=== PATIENT | female | born 1990 | race Caucasian/White ===

== ENCOUNTER → 2017-09-04 | Outpatient (CLI) | payer OTHER ==
[2017-09-08 04:12] LABS: CHLAMYDIA TRACHOMATIS, NAA Negative (Negative); NEISSERIA GONORRHOEAE, NAA Negative (Negative)
== END | disposition home or self-care (01) ==
LOC: LAB SHORT 11:19 → LAB 11:19
PROVIDERS: Family Medicine
DX: N76.0 Acute vaginitis (principal)
CPT/HCPCS: 87491; 87591

== ENCOUNTER → 2018-05-10 | Outpatient (CLI) | payer BC ==
[2018-05-12 15:07] LABS: HPV 16 Negative (Negative); HPV 18 Negative (Negative); HPV OTHER HR TYPES Negative (Negative)
== END | disposition home or self-care (01) ==
LOC: LAB SHORT 19:12 → LAB 19:12
PROVIDERS: Nurse Practitioner Women's Health
DX: Z12.4 Encounter for screening for malignant neoplasm of cervix (principal)
CPT/HCPCS: 87624; G0123

== ENCOUNTER → 2018-05-11 | Outpatient (CLI) | payer BC | END | disposition home or self-care (01) | LOC: LAB 12:44 → LAB SHORT 12:44 | DX: N89.8 Other specified noninflammatory disorders of vagina (principal) | CPT/HCPCS: 87070; 87147; 87205 ==

== ENCOUNTER → 2020-01-16 | Outpatient (CLI) | payer OTHER | END | disposition home or self-care (01) | LOC: LAB SHORT 14:05 → LAB SRC 14:05 | DX: O23.42 Unspecified infection of urinary tract in pregnancy, second trimester (principal) | CPT/HCPCS: 87077; 87086; 87186 ==

== ENCOUNTER → 2020-01-30 | Outpatient (CLI) | payer OTHER ==
[2020-01-30 13:07] LABS: Protein, Urine Quantitative 6.1 mg/dL (0.0-11.9)
== END | disposition home or self-care (01) ==
LOC: LAB SHORT 11:28 → LAB SRC 11:28
PROVIDERS: Obstetrics & Gynecology
DX: R03.0 Elevated blood-pressure reading, without diagnosis of hypertension (principal)
CPT/HCPCS: 81050; 84156

== ENCOUNTER 2020-06-18 21:11 | Inpatient (IN) | payer OTHER ==
[~2020-06-18] VITALS: Ht 165.1 cm; Wt 128.6 kg
[2020-06-18] MEDS ORDERED: PRENATAL TABLE1 EAC2 PO (21:33)
[2020-06-18] MEDS ORDERED: LEVSOD100 PO (21:33)
[2020-06-18 21:43] LABS: BASOPHILS ABSOLUTE AUTO 0.03 K/mm3 (0.00-0.23); BASOPHILS PERCENT AUTO 0 % (0-2); EOSINOPHILS ABSOLUTE AUTO 0.15 K/mm3 (0.00-0.68); EOSINOPHILS PERCENT AUTO 1 % (0-6); Hematocrit 35.4 % (33.0-51.0); Hemoglobin 12.1 g/dL (11.5-16.0); IMMATURE GRAN ABSOLUTE AUTO 0.05 K/mm3 (0.00-0.10); IMMATURE GRAN PERCENT AUTO 0 % (0-1); LYMPHOCYTES ABSOLUTE AUTO 2.31 K/mm3 (0.84-5.20); LYMPHOCYTES PERCENT AUTO 20 % (21-46); MONOCYTES ABSOLUTE AUTO 0.85 K/mm3 (0.16-1.47); MONOCYTES PERCENT AUTO 7 % (4-13); Mean Corpuscular HGB 30.6 pg (26.0-34.0); Mean Corpuscular HGB Conc 34.2 g/dL (31.5-36.5); Mean Corpuscular Volume 89 fL (80-100); Mean Platelet Volume 11.1 fL (9.1-12.4); NEUTROPHILS ABSOLUTE AUTO 8.23 K/mm3 (1.96-9.15); NEUTROPHILS PERCENT AUTO 71 % (41-73); Platelet Count 263 K/mm3 (150-400); RDW Coefficient Variation 13.1 % (11.7-14.2); RDW Standard Deviation 42.9 fL (35.1-46.3); Red Blood Cell Count 3.96 M/mm3 (3.80-5.20); White Blood Cell Count 11.62 K/mm3 (4.00-11.30)
--- NOTE | 2020-06-19 23:59 | NUR ---
06/19/20 7898 Carlos Plummer BABY GIRL BORN AT [id number], CORD SENT FOR CORD GASSES AND CORD BLOOD SAMPLE SENT TO THE LAB ALL VIA OB STAFF. FATHER PRESENT.
--- NOTE | 2020-06-20 03:37 | NUR ---
AGREE WITH STUDENT LEONIDES ASSESSMENT AND CARE THIS SHIFT
--- NOTE | 2020-06-20 05:25 | NUR ---
JONATHAN CARE DONE.
--- NOTE | 2020-06-20 06:29 | NUR ---
AGREE WITH STUDENT ASSESSMENT AND CARE THIS SHIFT
[2020-06-20 10:37] LABS: Mean Corpuscular HGB 31.1 pg (26.0-34.0); Mean Corpuscular HGB Conc 34.5 g/dL (31.5-36.5); Mean Corpuscular Volume 90 fL (80-100); Mean Platelet Volume 11.2 fL (9.1-12.4); Platelet Count 199 K/mm3 (150-400); RDW Coefficient Variation 13.1 % (11.7-14.2); Red Blood Cell Count 3.22 M/mm3 (3.80-5.20); White Blood Cell Count 13.86 K/mm3 (4.00-11.30)
--- NOTE | 2020-06-20 12:27 | NUR ---
ASSIST MOM HAS VERY WIDE SPACED UNDER DEVELOPED BREASTS SHE REPORTS THAT SHE REPORTS THAT SHE HAD NO BREAST GROWTH DURING HER PG. DISCUSSED POSSIBILITY OF DECREASED GLANDULAR TISSUE AND WHAT THAT COULD MEAN. MOM TO CONSIDER PUMPING AC 10-15 MINUTES AFTER EACH FEEDING TO HELP MAXIMIZE MILK PRODUCTION. WORKED ON LATCH BABY NURSING WELL TIMES 10 MINUTES ENCOURAGE MOM TO TRY AND KEEP BABY NURSING 20 MINUTES ON EACH BREAST AT EVERY FEEDING.
--- NOTE | 2020-06-20 12:39 | NUR ---
REPORTS DOING WELL, ON THE PHONE WITH FAMILY
[2020-06-21] MEDS ORDERED: Percocet 5-3251 EACH PO (09:23)
[2020-06-21] MEDS ORDERED: IBUP800 PO (09:24)
--- NOTE | 2020-06-21 15:23 | NUR ---
CONSULT PRIOR TO DISCHARGE HOME. BREASTS ARE SMALL, CONICAL, AND WIDELY SPACED. VERY LITTLE CHANGE DURING AND VERY LITTLE COLOSTRUM. INSTRUCT IN SUPPLEMENTING AT THE BREAST WITH SYRINGE AND FEEDING TUBE, INCREASING AMOUNT/FEEDING EACH DAY TO MATCH BABY'S GROWTH, UNTIL HER MILK COMES IN. DISCUSSED THE POSSIBILITY OF LOW TO NO PRODUCTION, BUT ALLOW HER BODY FULL STIMULATION TO PRODUCE FOR 1-2 WEEKS, THEN REEVALUATE HOW TO FEED BABY. HAVE BEEN OFFERING FORMULA VIA BOTTLE. MOM TO PUMP FOR 15-20 MINUTES 8-10X/DAY WHEN SHE GETS HOME, AND FEED BACK ALL EBM TO BABY, PUMPING PC. QUESTIONS ANSWERED, EMOTIONAL SUPPORT GIVEN, SPOUSE IS SUPPORTIVE, BOTH LOVING WITH BABY.
--- NOTE | 2020-07-03 18:49 | NUR ---
LATE ENTRY OR CHECKLIST UPDATED PER EMR
== END 2020-06-21 15:50 | disposition home or self-care (01) | DRG 787 ==
LOC: OBS 21:11 → BC 21:21
PROVIDERS: ADMIT Obstetrics & Gynecology
PROC: 3E033VJ Introduction of Other Hormone into Peripheral Vein, Percutaneous Approach (ICD-10-PCS; 2020-06-19)
PROC: 3E0P7VZ Introduction of Hormone into Female Reproductive, Via Natural or Artificial Opening (ICD-10-PCS; 2020-06-19)
PROC: 10907ZC Drainage of Amniotic Fluid, Therapeutic from Products of Conception, Via Natural or Artificial Opening (ICD-10-PCS; 2020-06-19)
PROC: 10H07YZ Insertion of Other Device into Products of Conception, Via Natural or Artificial Opening (ICD-10-PCS; 2020-06-19)
PROC: 00HU33Z Insertion of Infusion Device into Spinal Canal, Percutaneous Approach (ICD-10-PCS; 2020-06-19)
PROC: 3E033NZ Introduction of Analgesics, Hypnotics, Sedatives into Peripheral Vein, Percutaneous Approach (ICD-10-PCS; 2020-06-19)
PROC: 10D00Z1 Extraction of Products of Conception, Low, Open Approach (ICD-10-PCS; principal; 2020-06-19 23:30)
DX: O24.420 Gestational diabetes mellitus in childbirth, diet controlled (principal); O10.92 Unspecified pre-existing hypertension complicating childbirth; Z3A.39 39 weeks gestation of pregnancy; Z37.0 Single live birth; O99.214 Obesity complicating childbirth; E66.9 Obesity, unspecified; E03.9 Hypothyroidism, unspecified; O76 Abnormality in fetal heart rate and rhythm complicating labor and delivery; O99.824 Streptococcus B carrier state complicating childbirth; Z20.822 Contact with and (suspected) exposure to COVID-19
CPT/HCPCS: 0241U; 36415; 51702; 82947; 85025; 85027; 86850; 86900; 86901; A9270; J1580; J1885; J2001; J2590; J2765; J3010; J3370; J7050; J7120

== ENCOUNTER 2020-07-07 19:03 | Emergency (ER) | payer OTHER ==
[~2020-07-07] VITALS: Ht 165.1 cm; Wt 117.5 kg
[~2020-07-07 19:03] MED LIST: IBUP800 PO; LEVSOD100 PO; PRENATAL TABLE1 EAC2 PO; Percocet 5-3251 EACH PO
[2020-07-07 20:02] LABS: BASOPHILS ABSOLUTE AUTO 0.03 K/mm3 (0.00-0.23); BASOPHILS PERCENT AUTO 0 % (0-2); EOSINOPHILS ABSOLUTE AUTO 0.31 K/mm3 (0.00-0.68); EOSINOPHILS PERCENT AUTO 3 % (0-6); Hematocrit 36.1 % (33.0-51.0); Hemoglobin 11.8 g/dL (11.5-16.0); IMMATURE GRAN ABSOLUTE AUTO 0.04 K/mm3 (0.00-0.10); IMMATURE GRAN PERCENT AUTO 0 % (0-1); LYMPHOCYTES ABSOLUTE AUTO 2.35 K/mm3 (0.84-5.20); LYMPHOCYTES PERCENT AUTO 24 % (21-46); MONOCYTES ABSOLUTE AUTO 0.62 K/mm3 (0.16-1.47); MONOCYTES PERCENT AUTO 6 % (4-13); Mean Corpuscular HGB 29.6 pg (26.0-34.0); Mean Corpuscular HGB Conc 32.7 g/dL (31.5-36.5); Mean Corpuscular Volume 91 fL (80-100); Mean Platelet Volume 11.4 fL (9.1-12.4); NEUTROPHILS ABSOLUTE AUTO 6.37 K/mm3 (1.96-9.15); NEUTROPHILS PERCENT AUTO 66 % (41-73); Platelet Count 276 K/mm3 (150-400); RDW Coefficient Variation 12.1 % (11.7-14.2); RDW Standard Deviation 39.9 fL (35.1-46.3); Red Blood Cell Count 3.99 M/mm3 (3.80-5.20); White Blood Cell Count 9.72 K/mm3 (4.00-11.30)
[2020-07-07 20:15] LABS: Alanine Aminotransfer (ALT/SGP 22 U/L (12-78); Albumin, Blood 3.4 g/dL (3.4-5.0); Albumin/Globulin Ratio 0.9 (0.8-1.8); Alk Phos 124 U/L (50-136); Anion Gap 6 mmol/L (6-16); Aspartate Aminotrans (AST/SGOT 12 U/L (12-37); Bilirubin, Total 0.2 mg/dL (0.1-1.0); Blood Urea Nitrogen 10 mg/dL (8-24); Bun/Creatinine Ratio 13.1 (12.0-20.0); CO2, Blood 23 mmol/L (21-32); Calcium, Blood 8.7 mg/dL (8.5-10.1); Chloride, Blood 111 mmol/L (98-108); Creatinine, Blood 0.76 mg/dL (0.40-1.00); Globulin, Blood 3.8 g/dL (2.2-4.0); Glomerular Filtration Rate >60 (60-); Glucose, Blood 102 mg/dL (70-99); Potassium, Blood 3.5 mmol/L (3.5-5.5); Sodium, Blood 140 mmol/L (136-145); Total Protein, Blood 7.2 g/dL (6.4-8.2)
[2020-07-07] MEDS ORDERED: ONDA4ODT MM (20:28)
== END 2020-07-07 20:35 | disposition home or self-care (01) ==
LOC: ER 19:03
PROVIDERS: Emergency Medicine
DX: K80.20 Calculus of gallbladder without cholecystitis without obstruction (principal); E03.9 Hypothyroidism, unspecified; Z88.0 Allergy status to penicillin; Z88.1 Allergy status to other antibiotic agents; Z79.899 Other long term (current) drug therapy
CPT/HCPCS: 36415; 76705; 80053; 83690; 85025; 96374; 96375; 99284-25; J2405; J3010

== ENCOUNTER → 2023-02-19 | Outpatient (CLI) | payer OTHER ==
[~2023-02-19] MED LIST changes: +ACET325 PO; +EUTHYROX125 MCG PO; +Norco 5-325 Ta1 EACH PO; +ONDA4ODT MM
== END | disposition home or self-care (01) ==
LOC: LAB SHORT 15:09 → LAB 15:09
DX: O34.211 Maternal care for low transverse scar from previous cesarean delivery (principal); O99.213 Obesity complicating pregnancy, third trimester; O99.283 Endocrine, nutritional and metabolic diseases complicating pregnancy, third trimester; O99.343 Other mental disorders complicating pregnancy, third trimester
CPT/HCPCS: 87081; 87150; 87184

== ENCOUNTER 2023-03-09 05:13 | Inpatient (IN) | payer OTHER ==
[~2023-03-09] VITALS: Ht 165.1 cm; Wt 131.8 kg
[2023-03-09] VITALS (23 sets, daily range): BP systolic 86–134; BP diastolic 57–84
[2023-03-09 05:57] LABS: BASOPHILS ABSOLUTE AUTO 0.04 K/mm3 (0.00-0.23); BASOPHILS PERCENT AUTO 0 % (0-2); EOSINOPHILS ABSOLUTE AUTO 0.18 K/mm3 (0.00-0.68); EOSINOPHILS PERCENT AUTO 1 % (0-6); Hematocrit 35.6 % (33.0-51.0); Hemoglobin 12.2 g/dL (11.5-16.0); IMMATURE GRAN ABSOLUTE AUTO 0.06 K/mm3 (0.00-0.10); IMMATURE GRAN PERCENT AUTO 1 % (0-1); LYMPHOCYTES ABSOLUTE AUTO 2.68 K/mm3 (0.84-5.20); LYMPHOCYTES PERCENT AUTO 21 % (21-46); MONOCYTES PERCENT AUTO 7 % (4-13); Mean Corpuscular HGB 30.5 pg (26.0-34.0); Mean Corpuscular HGB Conc 34.3 g/dL (31.5-36.5); Mean Corpuscular Volume 89 fL (80-100); Mean Platelet Volume 10.8 fL (9.1-12.4); NEUTROPHILS ABSOLUTE AUTO 9.23 K/mm3 (1.96-9.15); NEUTROPHILS PERCENT AUTO 70 % (41-73); Platelet Count 232 K/mm3 (150-400); RDW Coefficient Variation 13.3 % (11.7-14.2); RDW Standard Deviation 43.7 fL (35.1-46.3); White Blood Cell Count 13.09 K/mm3 (4.00-11.30)
[2023-03-09] MEDS ORDERED: PRENATAL TABLE1 EAC2 PO (06:26)
--- NOTE | 2023-03-09 08:14 | NUR ---
03/09/23 0814 Tutu Bolden DELIVERY OF LIVE FEMALE AT 0803, 9/9 APGARS WT 3610 GM 7#15 19 /2 IN, SKIN TO SKIN INITIATED IN OR
--- NOTE | 2023-03-09 16:55 | NUR ---
ambulated in the room
[2023-03-10 04:11] VITALS: BP 134/69
[2023-03-10 05:46] LABS: BASOPHILS ABSOLUTE AUTO 0.02 K/mm3 (0.00-0.23); BASOPHILS PERCENT AUTO 0 % (0-2); EOSINOPHILS ABSOLUTE AUTO 0.18 K/mm3 (0.00-0.68); EOSINOPHILS PERCENT AUTO 2 % (0-6); Hematocrit 31.2 % (33.0-51.0); Hemoglobin 10.6 g/dL (11.5-16.0); IMMATURE GRAN ABSOLUTE AUTO 0.06 K/mm3 (0.00-0.10); IMMATURE GRAN PERCENT AUTO 1 % (0-1); LYMPHOCYTES ABSOLUTE AUTO 2.13 K/mm3 (0.84-5.20); LYMPHOCYTES PERCENT AUTO 19 % (21-46); MONOCYTES ABSOLUTE AUTO 0.86 K/mm3 (0.16-1.47); MONOCYTES PERCENT AUTO 8 % (4-13); Mean Corpuscular HGB 30.5 pg (26.0-34.0); Mean Corpuscular Volume 90 fL (80-100); Mean Platelet Volume 11.2 fL (9.1-12.4); NEUTROPHILS ABSOLUTE AUTO 8.11 K/mm3 (1.96-9.15); NEUTROPHILS PERCENT AUTO 71 % (41-73); Platelet Count 188 K/mm3 (150-400); RDW Coefficient Variation 13.7 % (11.7-14.2); RDW Standard Deviation 44.8 fL (35.1-46.3); Red Blood Cell Count 3.48 M/mm3 (3.80-5.20); White Blood Cell Count 11.36 K/mm3 (4.00-11.30)
[2023-03-10 09:07] VITALS: BP 130/80
[2023-03-10 11:46] VITALS: BP 140/88
[2023-03-10 16:26] VITALS: BP 130/79
[2023-03-10 19:25] VITALS: BP 136/84
[2023-03-10 23:14] VITALS: BP 119/67
--- NOTE | 2023-03-11 03:29 | NUR ---
pt sitting in bed with lights on. Pt holding baby. Pt requested pain meds, rated her pain a 7. notified nurse. refilled water pitcher. no further needs at this time.
[2023-03-11 05:50] VITALS: BP 105/56
[2023-03-11 08:29] VITALS: BP 144/100
[2023-03-11] MEDS ORDERED: IBU800 MG PO (09:20)
[2023-03-11] MEDS ORDERED: OXAYDO5 M3 PO (09:20)
[2023-03-11 11:49] VITALS: BP 134/75
[2023-03-11 17:14] VITALS: BP 157/85
[2023-03-11 17:17] VITALS: BP 148/92
--- NOTE | 2023-03-11 18:05 | NUR ---
DC HOME WITH SO AND BABY, AMBULATE OUT, HAS COPY OF DCINSTRUCTINS, DENIES ANY QUESTIONS, ENCOURAGED TO CALL IF HAS ANY, HAS [facility] APPT FOR [facility], HAS [facility] APPT TO REMOVE STERI STRIPS AT 7-10 DAYS.
== END 2023-03-11 18:10 | disposition home or self-care (01) | DRG 788 ==
LOC: BC 05:13
PROVIDERS: ADMIT Obstetrics & Gynecology
PROC: 10D00Z1 Extraction of Products of Conception, Low, Open Approach (ICD-10-PCS; principal; 2023-03-09 07:30)
DX: O34.211 Maternal care for low transverse scar from previous cesarean delivery (principal); O32.1XX0 Maternal care for breech presentation, not applicable or unspecified; O99.214 Obesity complicating childbirth; Z3A.39 39 weeks gestation of pregnancy; Z37.0 Single live birth; Z79.890 Hormone replacement therapy; O99.284 Endocrine, nutritional and metabolic diseases complicating childbirth; E03.9 Hypothyroidism, unspecified; Z88.0 Allergy status to penicillin; Z88.1 Allergy status to other antibiotic agents; O99.62 Diseases of the digestive system complicating childbirth; K21.9 Gastro-esophageal reflux disease without esophagitis
CPT/HCPCS: 36415; 85025; 86850; 86900; 86901; 86923; A9270; J1885; J2590; J2765; J3010; J7120